=== PATIENT | male | born 1940 | race Caucasian/White ===

== ENCOUNTER 2017-07-14 05:39 | Outpatient (CLI) | payer MEDICARE, OTHER ==
[~2017-07-14] VITALS: Ht 182.9 cm; Wt 72.6 kg
[2017-07-14] MEDS ORDERED: POTA99TA21 PO (15:07)
[2017-07-14] MEDS ORDERED: ASCO-262 PO (15:07)
[2017-07-14] MEDS ORDERED: NF-VITD400 PO (15:07)
[2017-07-14] MEDS ORDERED: CALC600T12 PO (15:07)
== END 2017-07-14 15:09 ==
LOC: PREOP 05:39
PROVIDERS: ATTEND Surgery
DX: Z01.818 Encounter for other preprocedural examination (principal); D50.9 Iron deficiency anemia, unspecified

== ENCOUNTER 2017-07-17 08:47 | Day surgery (SDC) | payer MEDICARE, OTHER ==
[~2017-07-17] VITALS: Ht 182.9 cm; Wt 72.6 kg
[~2017-07-17 08:47] MED LIST: ASCO-262 PO; CALC600T12 PO; NF-VITD400 PO; POTA99TA21 PO
--- OUTSIDE RECORDS SUMMARY | 2017-07-17 08:51 | XMS REPORT | Continuity of Care Document ---
Author Author [facility] Organization [facility] Address Unknown Phone Unavailable Allergies Active Description Code Type Severity Reaction Onset Reported/Identified Relationship to Patient Clinical Status Yes NKANo Known Allergies NKA Miscellaneous Allergy Mild N/A 03/05/2009 Medications Problems Date Dx Coded Attending Type Code Diagnosis Diagnosed By 03/30/2015 CHARLOTTE PATTERSON APRN Ot 989.5 03/30/2015 CHARLOTTE PATTERSON APRN Ot E000.8 03/30/2015 CHARLOTTE PATTERSON APRN Ot E849.0 03/30/2015 CHARLOTTE PATTERSON APRN Ot E905.3 03/31/2015 Ot 530.81 03/31/2015 Ot 535.10 03/31/2015 Ot V10.46 03/31/2015 Ot V12.72 03/31/2015 Ot V76.51 Procedures Results Encounters ACCT No. Visit Date/Time Discharge Status Pt. Type Provider Facility Loc./Unit Complaint [id number] 03/30/2015 21:22:00 2014 22:22:00 DIS Emergency CHARLOTTE PATTERSON APRN [facility] ER [id number] 01/31/2011 08:39:00 Document Registration
[2017-07-17 08:55] VITALS: BP 118/76
[2017-07-17] MEDS ORDERED: NS IV 500 ML 500 ML ONE (09:03)
[2017-07-17] MEDS ORDERED: NS IV 500 ML 500 ML IV PRN (09:15)
[2017-07-17] MEDS ORDERED: MIDAZOLAM 2 MG/2 ML (VERSED) VIAL ONE ×4 (10:25→10:26)
[2017-07-17] MEDS ORDERED: fentaNYL INJECTION 100 MCG/2 ML AMP ONE ×2 (10:25)
[2017-07-17] MEDS: fentaNYL INJECTION 100 MCG/2 ML AMP IVP PRN ×4 (10:58→11:15)
[2017-07-17] MEDS: MIDAZOLAM 2 MG/2 ML (VERSED) VIAL IVP PRN ×2 (10:59→11:12)
--- NOTE | 2017-07-17 11:09 | Conscious Sedation/ASA ---
Conscious Sedation Pre-Proced Time Reviewed: 10:38 ASA Class: 2 Airway Mallampati Classification: ([place] appropriate class) I. II. III, IV Lungs Heart ASA score ASA 1: a normal healthy patient ASA 2: a patient with a mild systemic disease (mid diabetes, controlled hypertension, obesity ASA 3: a patient with a severe systemic disease that limits activity (angina , COPD, prior Myocardial infarction) ASA 4: a patient with an incapacitating disease that is a constant threat to life (CHF, renal failure) ASA 5: a moribund patient not expected to survive 24 hrs. (ruptured aneurysm) ASA 6: a declared brain patient whose organs are being harvested. For emergent operations, add the letter E after the classification Grade 1 Sedation Plan: Discussed options with patient/fam Note The patient is an appropriate candidate to undergo the planned procedure, sedation, and anesthesia. The patient immediately re-assessed prior to indication. KAVON MONSIVAIS MD Jul 17, 2017 11:09 am
--- NOTE | 2017-07-17 11:09 | History & Physicial ---
History of Present Illness History of Present Illness Reason for visit/HPI to undergo surveillance colonoscopy. He reports a personal history of polyps and a family history of colon cancer Date of Admission Date Seen by Provider: Jul 17, 2017 Time Seen by Provider: 11:07 I consulted on this patient on 07/17/17 11:06 Attending Physician Kavon Monsivais MD Admitting Physician Antonio Lopez MD Consult Allergies and Home Medications Allergies Coded Allergies: NKANo Known Allergies (Unverified Allergy, Mild, 03/05/09) Home Medications Ascorbate Calcium 500 Mg Tablet, 500 MG PO DAILY, (Reported) Calcium Carbonate 600 Mg Tablet, 600 MG PO DAILY, (Reported) Cholecalciferol (Vitamin D3) 400 Unit Tablet, 400 UNIT PO DAILY, (Reported) Potassium Gluconate 99 Mg Tablet, 99 MG PO DAILY, (Reported) Past Aoragcb-Htzmql-Zfrhge Hx Patient Social History Marrital Status: Employed/Student: retired Alcohol Use: Denies Use Recreational Drug Use: No Smoking Status: Never a Smoker Recent Foreign Travel: No Contact w/other who traveled: No Recent Hopitalizations: No Recent Infectious Disease Expo: No Seasonal Allergies Seasonal Allergies: No Surgeries Yes Prostatectomy Respiratory No Cardiovascular No Neurological No Reproductive System Hx Reproductive Disorders: No Genitourinary Yes Prostate Problems Gastrointestinal No Musculoskeletal No Endocrine History of Endocrine Disorders: No HEENT History of HEENT Disorders: No Cancer Yes Prostate Integumentary History of Skin or Integumenta: No Constitutional: no symptoms reported EENTM: no symptoms reported Respiratory: no symptoms reported Cardiovascular: no symptoms reported Gastrointestinal: no symptoms reported Genitourinary: no symptoms reported Musculoskeletal: no symptoms reported Skin: no symptoms reported Psychiatric/Neurological: No Symptoms Reported Physical Exam Vital Signs Vital Sign - Last 12Hours 07/17/17 08:55 Temp 97.6 Pulse 63 Resp 20 B/P (MAP) 118/76 Pulse Ox 99 O2 Delivery Nasal Cannula Capillary Refill : General Appearance: No Apparent Distress HEENT: Normal ENT Inspection Neck: Normal Inspection Respiratory: Lungs Clear Cardiovascular: Regular Rate, Rhythm Gastrointestinal: Normal Bowel Sounds, Non Tender, Soft Rectal: Deferred Extremity: Normal Inspection Neurologic/Psychiatric: Alert, Oriented x3 Skin: Warm/Dry Assessment/Plan Assessment and Plan gentleman with a personal history of polyps and a family history of colonoscopy. For surveillance colonoscopy Problems: KAVON MONSIVAIS MD Jul 17, 2017 11:09 am
--- NOTE | 2017-07-17 11:22 | Endo Procedure Record ---
Endo Procedure Report Date of Procedure Jul 17, 2017 Surgeon (s) KAVON MONSIVAIS MD Post Procedure/Op Diagnosis very few sigmoid diverticular Procedure Performed colonoscopy to cecum Description of Procedure Anesthesia Type: Conscious Sedation Specimen(s) collected/removed none Description of the Procedure indication for procedure: This gentleman came in for surveillance colonoscopy. He reported a positive family history and a personal history of polyps.informed consent was obtained after reviewing the procedure in detail. Description of the procedure: He was placed in left lateral decubitus position and his vital signs were monitored. Conscious sedation was achieved using Versed and fentanyl. Digital rectal examination was unremarkable. The colonoscope was then introduced into the rectum and advanced all the way up to the cecum. The quality of bowel preparation was rather sub-optimal. The scope was then withdrawn slowly and the mucosa examined in a systematic fashion. Finding: Very few sigmoid diverticula. No recurrent polyps were found. He tolerated the procedure well and was taken back to the nursing area in a stable condition. Previous history of polyps and family history of colon cancer. No polyps identified on this examination. Recommend repeating in 5 years. Copies To: KISHA ZEPEDA MD, XAVIER M MD Jul 17, 2017 11:22 am
--- NOTE | 2017-07-17 11:23 | Discharge Inst-Simple/Standard ---
Discharge Inst-Standard Discharge Medications New, Converted or Re-Newed RX: Other Patient Instructions/Follow Up Plan of Care/Instructions/FU: repeat colonoscopy in 5 years alike Activity as Tolerated: Yes Discharge Diet: No Restrictions KAVON MONSIVAIS MD Jul 17, 2017 11:23 am
[2017-07-17 11:50] VITALS: BP 126/75
[2017-07-17 12:20] VITALS: BP 136/86
[2017-07-17 12:30] VITALS: BP 136/86
== END 2017-07-17 12:30 | disposition home or self-care (01) ==
LOC: ENDO 08:47
PROVIDERS: ATTEND Surgery
DX: Z09 Encounter for follow-up examination after completed treatment for conditions other than malignant neoplasm (principal); K57.30 Diverticulosis of large intestine without perforation or abscess without bleeding; Z86.010 Personal history of colon polyps; Z80.0 Family history of malignant neoplasm of digestive organs

== ENCOUNTER 2020-08-26 05:53 | Outpatient (RCR) | payer MEDICARE ==
[~2020-08-26] VITALS: Ht 182.9 cm; Wt 70.5 kg
[~2020-08-26 05:53] MED LIST changes: -CALC600T12 PO; +CLC600T PO
== END 2020-08-26 10:09 | disposition home or self-care (01) ==
LOC: PREOP 05:53
PROVIDERS: ATTEND Specialist
DX: Z01.812 Encounter for preprocedural laboratory examination (principal); H25.9 Unspecified age-related cataract; Z20.828 Contact with and (suspected) exposure to other viral communicable diseases
CPT/HCPCS: 87635

== ENCOUNTER → 2020-08-28 | Day surgery (SDC) | payer MEDICARE, OTHER ==
[~2020-08-28] VITALS: Ht 182 cm; Wt 70.5 kg
[~2020-08-28] MED LIST changes: +LIDOCAINE PF 1% 2 ML VIAL IR PRN; +MOXIFLOXACIN OPHTH SOLN 5 MG/ML 0.3 ML SYRINGE OP ONE; +PHENYLEPHRINE 10% OPHTH (NEO-SYN) 5 ML BTL OU SCH; +POVIDONE (BETADINE) OPHTH SOLN 5% 30 ML OP ONE; +TIMOLOL MALEATE 0.5% 5 ML (TIMOPTIC) BTL OU PRN; +TROPICAMIDE 1% OPH SOLN (MYDRIACYL) 15 ML BTL OP SCH; +acetaZOLAMIDE ER 500 MG CAP (DIAMOX SEQUELS) PO ONE
[2020-08-28 09:58] VITALS: BP 136/88
[2020-08-28] MEDS: TETRACAINE 0.5% OPHTH SOLN 4 ML BTL (SINGLE DOSE ONLY) OU PRN ×2 (10:27→10:33)
--- NOTE | 2020-08-28 10:59 | Ophthalmologist Pre-Op Note ---
Pre-Operative Progress Note H&P Reviewed The H&P was reviewed, patient examined and no changes noted. Date H&P Reviewed: Aug 28, 2020 Time H&P Reviewed: 10:59 Pre-Op Dx Cataract, Left Eye MARCO FERGUSON MD Aug 28, 2020 10:59
--- NOTE | 2020-08-28 11:28 | Ophthalmology Operative Report ---
Cataract removal/placement IOL PREOPERATIVE DIAGNOSIS: Cataract Left Eye POSTOPERATIVE DIAGNOSIS: Cataract Left Eye PROCEDURE: Cataract removal and placement of posterior chamber implant, left eye SURGEON: Naeem Ferguson ANESTHESIA: Topical with sedation COMPLICATIONS: None ESTIMATED BLOOD LOSS: Minimal DESCRIPTION OF PROCEDURE: After proper informed consent was obtained, the patient, a 80 male, was taken to the Operating Room and the left eye was anesthetized with tetracaine. The left eye was then prepped and draped in the usual manner. A wire lid speculum was placed. A paracentesis was made at the left hand position. Preservative free lidocaine was injected into the anterior chamber followed by viscoelastic. A clear corneal incision was made in the temporal position. A capsulorrhexis was preformed and the central nuclear and cortical material were removed. The posterior capsule was polished and an Neftaly SN6AT4 20.5 was placed into the capsular bag. The residual viscoelastic was aspirated and balanced saline solution was injected into the anterior chamber. Moxifloxacin was injected into the anterior chamber. The wound was checked and found to be water tight. The patient tolerated the procedure well without complications. NAEEM FERGUSON MD Aug 28, 2020 11:28
[2020-08-28 11:37] VITALS: BP 136/88
[2020-08-28 11:46] VITALS: BP 142/80
--- NOTE | 2020-08-28 12:08 | Anesthesia-General Post-Op ---
MAC Patient Condition Mental Status/LOC: Same as Preop Cardiovascular: Satisfactory Nausea/Vomiting: Absent Respiratory: Satisfactory Pain: Controlled Complications: Absent Post Op Complications Complications None Follow Up Care/Instructions Patient Instructions None needed. Anesthesiology Discharge Order Discharge Order Patient is doing well, no complaints, stable vital signs, no apparent adverse anesthesia problems. No complications reported per nursing. MESSI MANZANO CRNA Aug 28, 2020 12:08
== END ==
LOC: SDC 09:48
PROVIDERS: ATTEND Specialist
DX: H25.12 Age-related nuclear cataract, left eye (principal)
CPT/HCPCS: 66984; V2787

== ENCOUNTER 2020-09-02 05:37 | Outpatient (RCR) | payer MEDICARE ==
[~2020-09-02 05:37] MED LIST changes: -LIDOCAINE PF 1% 2 ML VIAL IR PRN; -MOXIFLOXACIN OPHTH SOLN 5 MG/ML 0.3 ML SYRINGE OP ONE; -PHENYLEPHRINE 10% OPHTH (NEO-SYN) 5 ML BTL OU SCH; -POVIDONE (BETADINE) OPHTH SOLN 5% 30 ML OP ONE; -TIMOLOL MALEATE 0.5% 5 ML (TIMOPTIC) BTL OU PRN; -TROPICAMIDE 1% OPH SOLN (MYDRIACYL) 15 ML BTL OP SCH; -acetaZOLAMIDE ER 500 MG CAP (DIAMOX SEQUELS) PO ONE
== END 2020-09-02 11:33 | disposition home or self-care (01) ==
LOC: PREOP 05:37
PROVIDERS: ATTEND Specialist
DX: Z01.818 Encounter for other preprocedural examination (principal); H25.11 Age-related nuclear cataract, right eye; Z20.828 Contact with and (suspected) exposure to other viral communicable diseases
CPT/HCPCS: 87635

== ENCOUNTER 2020-09-04 06:50 | Day surgery (SDC) | payer MEDICARE ==
[~2020-09-04] VITALS: Ht 182.9 cm; Wt 70.5 kg
[2020-09-04 07:00] VITALS: BP 135/91
[2020-09-04] MEDS ORDERED: MOXIFLOXACIN OPHTH SOLN 5 MG/ML 0.3 ML SYRINGE OP ONE (07:00)
[2020-09-04] MEDS ORDERED: POVIDONE (BETADINE) OPHTH SOLN 5% 30 ML OP ONE (07:00)
[2020-09-04] MEDS ORDERED: TIMOLOL MALEATE 0.5% 5 ML (TIMOPTIC) BTL OU PRN (07:00)
[2020-09-04] MEDS ORDERED: LIDOCAINE PF 1% 2 ML VIAL IR PRN (07:00)
[2020-09-04] MEDS: TETRACAINE 0.5% OPHTH SOLN 4 ML BTL (SINGLE DOSE ONLY) OU PRN ×4 (07:03→07:22)
[2020-09-04] MEDS: PHENYLEPHRINE 10% OPHTH (NEO-SYN) 5 ML BTL OU SCH ×3 (07:10→07:22)
[2020-09-04] MEDS: TROPICAMIDE 1% OPH SOLN (MYDRIACYL) 15 ML BTL OP SCH ×3 (07:11→07:22)
[2020-09-04] MEDS ORDERED: MIDAZOLAM 2 MG/2 ML (VERSED) VIAL ONE (07:38)
--- NOTE | 2020-09-04 08:09 | Ophthalmologist Pre-Op Note ---
Pre-Operative Progress Note H&P Reviewed The H&P was reviewed, patient examined and no changes noted. Date H&P Reviewed: Sep 04, 2020 Time H&P Reviewed: 08:09 Pre-Op Dx Cataract, Left Eye MARCO FERGUSON MD Sep 04, 2020 08:09
[2020-09-04] MEDS ORDERED: acetaZOLAMIDE ER 500 MG CAP (DIAMOX SEQUELS) PO ONE (08:30)
--- NOTE | 2020-09-04 08:42 | Ophthalmology Operative Report ---
Cataract removal/placement IOL PREOPERATIVE DIAGNOSIS: Cataract Right Eye POSTOPERATIVE DIAGNOSIS: Cataract Right Eye PROCEDURE: Cataract removal and placement of posterior chamber implant, right eye SURGEON: Naeem Ferguson ANESTHESIA: Topical with sedation COMPLICATIONS: None ESTIMATED BLOOD LOSS: Minimal DESCRIPTION OF PROCEDURE: After proper informed consent was obtained, the patient, a 80 male, was taken to the Operating Room and the right eye was anesthetized with tetracaine. The right eye was then prepped and draped in the usual manner. A wire lid speculum was placed. A paracentesis was made at the left hand position. Preservative free lidocaine was injected into the anterior chamber followed by viscoelastic. A clear corneal incision was made in the temporal position. A capsulorrhexis was preformed and the central nuclear and cortical material were removed. The posterior capsule was polished and Neftaly SN6AT3 20.0 IOL was placed into the capsular bag. The residual viscoelastic was aspirated and balanced saline solution was injected into the anterior chamber. Moxifloxacin was injected into the anterior chamber. The wound was checked and found to be water tight. The patient tolerated the procedure well without complications. NAEEM FERGUSON MD Sep 04, 2020 08:42
[2020-09-04 08:55] VITALS: BP 128/77
--- NOTE | 2020-09-04 11:32 | Anesthesia-General Post-Op ---
MAC Patient Condition Mental Status/LOC: Same as Preop Cardiovascular: Satisfactory Nausea/Vomiting: Absent Respiratory: Satisfactory Pain: Controlled Complications: Absent Post Op Complications Complications None Follow Up Care/Instructions Patient Instructions None needed. Anesthesiology Discharge Order Discharge Order Patient is doing well, no complaints, stable vital signs, no apparent adverse anesthesia problems. No complications reported per nursing. MEREDITH TORRES CRNA Sep 04, 2020 11:32
== END 2020-09-04 08:55 | disposition home or self-care (01) ==
LOC: SDC 06:50
PROVIDERS: ATTEND Specialist
DX: H25.11 Age-related nuclear cataract, right eye (principal)

== ENCOUNTER 2020-12-30 05:40 | Outpatient (RCR) | payer MEDICARE ==
[~2020-12-30] VITALS: Ht 182.9 cm; Wt 74.9 kg
== END 2020-12-30 09:38 | disposition home or self-care (01) ==
LOC: PREOP 05:40
PROVIDERS: ATTEND Internal Medicine
DX: Z01.812 Encounter for preprocedural laboratory examination (principal); Z20.822 Contact with and (suspected) exposure to COVID-19
CPT/HCPCS: 87635

== ENCOUNTER 2021-01-01 07:49 | Day surgery (SDC) | payer MEDICARE ==
--- NOTE | 2020-12-22 13:56 | HISTORY AND PHYSICAL ---
DATE OF SERVICE: PANENDOSCOPY SUMMARY REFERRING PHYSICIAN: Dr. Dickerson. The patient was referred for surveillance colonoscopy with a past history of colon polyps and a family history of colon cancer, index case being his mother, who was diagnosed in her 70s and secondary to a colonoscopy in her early 80s. The patient also been having epigastric discomfort. There does not seem to be meal association. He denies melena or bright red blood per rectum. He does report a 10-pound weight gain over the winter. He is concerned as his father apparently succumbed to gastric cancer around the age of 68. PAST MEDICAL HISTORY: Significant for osteoarthritis. He has had left total knee replacement and left shoulder replacement for arthritis in the past. He currently takes no medication and is quite spry for his age. PAST SURGICAL HISTORY: Other than the above joint replacements for which the knee was done in 2019 and the shoulder in 2018, he also had prostatectomy for prostate cancer in 2001 with no evidence for recurrence. 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 He has no past smoking or drinking history. REVIEW OF SYSTEMS: CONSTITUTIONAL: Denies night sweats, chills, fever. Does report a 10-pound weight gain over the winter. PULMONARY: Denies cough, dyspnea on exertion, shortness of breath or wheezing. CARDIOVASCULAR: The patient denies chest pain, orthopnea, PND, pedal edema, syncope or presyncope. GASTROINTESTINAL: As noted in the HPI. PHYSICAL EXAMINATION: GENERAL: Reveals normal white male, appears to be in no acute distress. VITAL SIGNS: Weight 170.6 pounds, blood pressure 120/72. HEENT: Unremarkable. CHEST: Clear. CARDIOVASCULAR: Reveals regular rate and rhythm without significant murmur, S3 or S4. ABDOMEN: Soft, supple. Epigastric pain to palpation is present without rebound or guarding. No mass or organomegaly are noted. No bruits are appreciated. Bowel sounds are positive. EXTREMITIES: Reveal no cyanosis, clubbing or edema. ASSESSMENT AND PLAN: The patient is set up for surveillance colonoscopy due to past history of colon cancer and a family history of colon cancer, index case being his mother diagnosed in her late 70s. He has been undergoing diagnostic EGD due to epigastric pain with a family history of gastric cancer in his father, who succumbed to disease at the age of 68. I thank you for the referral of this pleasant gentleman. Job ID: [id number] DocumentID: [id number] Dictated Date: 12/22/2020 12:21:29 Film Cleaner Date: 12/22/2020 12:39:14 Dictated By: TANYA BOYER MD MTDD
[~2021-01-01] VITALS: Ht 182.9 cm; Wt 74.9 kg
[2021-01-01] MEDS ORDERED: LACTATED RINGERS 1,000 ML IV ONE (07:58)
[2021-01-01] MEDS ORDERED: LACTATED RINGERS 1,000 ML IV STA (08:19)
[2021-01-01] MEDS ORDERED: LIDOCAINE JELLY 2% 6 ML SYRINGE MM PRN (08:30)
[2021-01-01] MEDS ORDERED: HURRICAINE EXT TUBE (BENZOCAINE) XX PRN (08:30)
[2021-01-01 08:31] VITALS: BP 137/89
--- NOTE | 2021-01-01 08:39 | Pre-Op Note & Conscious Sedat ---
Pre-Operative Progress Note H&P Reviewed The H&P was reviewed, patient examined and no changes noted. Date H&P Reviewed: Jan 01, 2021 Time H&P Reviewed: 08:38 Conscious Sedation Pre-Proced ASA Score 2 For ASA 3 and 4: Consider anesthesia and medical clearance. Also, for patients with a history of failed moderate sedation consider anesthesia. Airway Lungs Heart ASA score ASA 1: a normal healthy patient ASA 2: a patient with a mild systemic disease (mid diabetes, controlled hypertension, obesity ASA 3: a patient with a severe systemic disease that limits activity (angina, COPD, prior Myocardial infarction) ASA 4: a patient with an incapacitating disease that is a constant threat to life (CHF, renal failure) ASA 5: a moribund patient not expected to survive 24 hrs. (ruptured aneurysm) ASA 6: a declared brain- patient whose organs are being harvested. For emergent operations, add the letter E after the classification Mallampati Classification Grade 2 Sedation Plan Analgesia, Amnesia, Plan communicated to team members, Discussed options with patient/fam, Discussed risks with patient/fam The patient is an appropriate candidate to undergo the planned procedure, sedation, and anesthesia. The patient immediately re-assessed prior to indication. TANYA BOYER MD Jan 01, 2021 08:39
[2021-01-01] MEDS ORDERED: PROPOFOL INJECTION 50 ML IV ONE (08:50)
[2021-01-01] MEDS ORDERED: LIDOCAINE JELLY 2% 6 ML SYRINGE ONE (09:01)
[2021-01-01] MEDS ORDERED: HURRICAINE EXT TUBE (BENZOCAINE) ONE (09:01)
[2021-01-01 09:55] VITALS: BP 114/69
[2021-01-01 10:00] VITALS: BP 114/69
[2021-01-01 10:20] VITALS: BP 124/81
[2021-01-01 10:21] VITALS: BP 124/81
--- NOTE | 2021-01-01 10:33 | Anesthesia-General Post-Op ---
MAC Patient Condition Mental Status/LOC: Same as Preop Cardiovascular: Satisfactory Nausea/Vomiting: Absent Respiratory: Satisfactory Pain: Controlled Complications: Absent Post Op Complications Complications None Follow Up Care/Instructions Patient Instructions None needed. Anesthesiology Discharge Order Discharge Order Patient is doing well, no complaints, stable vital signs, no apparent adverse anesthesia problems. No complications reported per nursing. THANIA HARRIS CRNA Jan 01, 2021 10:33
--- NOTE | 2021-01-01 19:25 | OPERATIVE REPORT ---
DATE OF SERVICE: PANENDOSCOPY SUMMARY INDICATION FOR THE PROCEDURE: Colonoscopy was performed for screening purposes with family history of colon cancer. EGD is performed for evaluation of epigastric pain with family history of gastric cancer. The patient was placed in the left lateral decubitus position. Prior to undergoing colonoscopy, digital rectal evaluation was performed. Anal sphincter tone was normal and the perianal reflexes intact. There is surgical absence of the prostate with an otherwise unremarkable digital rectal evaluation, no nodularity was noted. No evidence for internal or external hemorrhoids were noted. The colonoscope was then inserted into the rectum and under direct visualization advanced to cecum. The cecum was identified by identification of ileocecal valve with cecal strap. Photographic documentation was obtained. Careful inspection was made as colonoscope was withdrawn. The quality of the prep was fair. FINDINGS: There was no evidence for internal or external hemorrhoids and the rectum, sigmoid colon, descending colon, transverse colon, ascending colon and cecum were unremarkable with no evidence for neoplasia or diverticular disease. ASSESSMENT: Normal colonoscopy to the cecum. Considering this patient's age, I would not recommend future screening colonoscopy despite family history. We then proceeded with EGD evaluation. The endoscope was inserted into the oral cavity and under direct visualization, esophagus was intubated. The endoscope was passed down the esophagus through the stomach and second portion of the duodenum. Careful inspection was made as the endoscope was withdrawn. The patient tolerated the procedure well. FINDINGS: Proximal and mid esophagus were unremarkable. There is some mild erythema noted at the Z-line without evidence for erosive esophagitis, rings, webs, strictures or Turner's change. Biopsy was obtained from the GE junction and submitted for histopathology. The cardia and fundus of the stomach were unremarkable. There are some patchy antral erythema without evidence for ulceration. A biopsy was obtained and submitted for Helicobacter evaluation. The pylorus, the pyloric channel, duodenal bulb and second portion of duodenum were unremarkable. ASSESSMENT: Mild antral erythema was present without evidence for erosive esophagitis or overt evidence for Turner's change. There is some mild patchy erythema of the antrum as well suggesting mild antral gastritis. Biopsies were obtained from the GE junction and antrum for histopathology and Helicobacter evaluation. Advised the patient just use p.r.n. antacid therapy at this time and he is reassured there is no evidence for malignancy. I thank you for the referral of this pleasant gentleman. Job ID: [id number] DocumentID: [id number] Dictated Date: 01/01/2021 10:45:43 Study Abroad Coordinator Date: 01/01/2021 19:24:29 Dictated By: TANYA BOYER MD
== END 2021-01-01 10:35 | disposition home or self-care (01) ==
LOC: ENDO 07:49
PROVIDERS: ATTEND Internal Medicine
DX: Z12.11 Encounter for screening for malignant neoplasm of colon (principal); K22.10 Ulcer of esophagus without bleeding; K21.00 Gastro-esophageal reflux disease with esophagitis, without bleeding; K31.89 Other diseases of stomach and duodenum; M19.90 Unspecified osteoarthritis, unspecified site; Z96.652 Presence of left artificial knee joint; Z96.612 Presence of left artificial shoulder joint; Z85.46 Personal history of malignant neoplasm of prostate; Z90.79 Acquired absence of other genital organ(s); Z80.0 Family history of malignant neoplasm of digestive organs
CPT/HCPCS: 43239; G0105

== ENCOUNTER → 2021-07-01 | Outpatient (CLI) | payer OTHER, MEDICARE ==
[~2021-07-01] MED LIST changes: +CALC600T91 PO; -CLC600T PO
--- NOTE | 2021-07-01 15:34 | Diagnostic Imaging Report ---
INDICATION: Neck pain AP, lateral and odontoid views of the cervical spine are obtained. There is diffuse cervical disc space narrowing from the C4-C7 levels. Mild endplate spurring is also present with degenerative facet arthropathy at C2-C3. Prevertebral soft tissues are unremarkable. No lytic or sclerotic focus is identified. IMPRESSION: Cervical spondylosis without definite acute abnormality. Dictated by: Dictated on workstation # [id number]
--- NOTE | 2021-07-01 15:41 | Diagnostic Imaging Report ---
INDICATION: Left shoulder pain. TECHNIQUE: AP, oblique, and transscapular views of the left shoulder are obtained. FINDINGS: Since 06/15/2011, there has been performance of total left shoulder arthroplasty. Prosthetic components appear to be well aligned. There is no evidence of an acute fracture. Small ossific density projects along the undersurface of the acromion. This could represent dystrophic calcification or old injury. IMPRESSION: No evidence of complication related to left shoulder arthroplasty. Dystrophic calcification or old traumatic deformity is seen along the undersurface of the acromion which could impinge upon the rotator cuff. Dictated by: Dictated on workstation # [id number]
--- NOTE | 2021-07-01 15:43 | Diagnostic Imaging Report ---
INDICATION: Back pain. EXAMINATION: Thoracic spine. FINDINGS: AP and lateral views of the thoracic spine show normal vertebral body height and alignment. Disc spaces are normal. IMPRESSION: Negative thoracic spine. Dictated by: Dictated on workstation # [id number]
== END ==
LOC: RAD 15:03
PROVIDERS: ATTEND Chiropractor
DX: M47.816 Spondylosis without myelopathy or radiculopathy, lumbar region (principal)
CPT/HCPCS: 72040; 72070; 73030

== ENCOUNTER → 2022-12-27 | Outpatient (CLI) | payer MEDICARE ==
[~2022-12-27] MED LIST changes: -POTA99TA21 PO; +POTA99TA26 PO
--- NOTE | 2022-12-27 14:01 | Diagnostic Imaging Report ---
INDICATION: Right knee pain. COMPARISON: None. FINDINGS: Multiple radiographic views of the right knee were obtained. Moderate tricompartmental osteoarthritic changes are noted, consisting of joint space narrowing with osteophyte formations, greatest involving the medial tibiofemoral compartment. Osseous structures are intact. There is no acute fracture. Joint spaces are otherwise maintained. There may be a small suprapatellar joint effusion. No unexpected radiopaque foreign bodies are seen. IMPRESSION: 1. Moderate osteoarthritic changes of the right knee. 2. No acute fracture or dislocation. Dictated by: Dictated on workstation # [id number]
== END ==
LOC: ORTHO 09:41
PROVIDERS: ATTEND Orthopaedic Surgery
DX: M17.11 Unilateral primary osteoarthritis, right knee (principal)
CPT/HCPCS: 73564; G0463; 99203

== ENCOUNTER → 2023-08-01 | Outpatient (CLI) | payer MEDICARE ==
[~2023-08-01] VITALS: Ht 182 cm; Wt 64.0 kg
[~2023-08-01] MED LIST changes: +CATHETER FLUSH 10 ML SYR IVP PRN; +CEFU500T63 PO; +CHOL-34 PO; +POTA99CA PO; +REGADENOSON 0.4 MG/5 ML SYR IV ONE; +VITA400T9 PO
[2023-08-01 09:36] VITALS: BP 116/63
--- NOTE | 2023-08-05 00:30 | STRESS TEST ---
DATE OF SERVICE: 08/01/2023 RESTING AND POST REGADENOSON TECHNETIUM-99M TETROFOSMIN SPECT CT IMAGING ORDERING PHYSICIAN: Dr. Glynn. PRIMARY PHYSICIAN: Dr. Dickerson. CLINICAL DIAGNOSIS: Fatigue. Baseline images were carried out after injection of 10.61 mCi of technetium-99m tetrofosmin. This was followed by 0.4 mg regadenoson and 31.7 mCi of technetium-99m tetrofosmin for stress imaging. The electrocardiogram showed a paced ventricular rhythm. The electrocardiogram did not change significantly with the regadenoson infusion. The patient tolerated the procedure well. Review of images at rest and following stress does not indicate any distinct perfusion defects consistent with myocardial ischemia or infarction. Some degree of diaphragmatic attenuation is seen both at rest and following regadenoson infusion. Gated images show normal global left ventricular systolic function with normal regional wall motion including the diaphragmatic wall of the left ventricle. Left ventricular ejection fraction is calculated to be 60%. CONCLUSIONS: 1. No evidence of any significant myocardial ischemia or infarction on this study. 2. Normal regional wall motion. 3. Normal global left ventricular systolic function with a calculated ejection fraction of 60%. Job ID: [id number] DocumentID: [id number] Dictated Date: 08/04/2023 19:10:28 Inorganic Chemist Date: 08/05/2023 00:30:00 Dictated By: BLAYNE GLYNN MD; CHERELLE; FACP; FACC;
== END ==
LOC: CARD 08:05
PROVIDERS: ATTEND Internal Medicine Cardiovascular Disease
DX: R53.83 Other fatigue (principal)
CPT/HCPCS: 78452; 93017; A9502